=== PATIENT | male | born 1990 | race Caucasian/White ===

== ENCOUNTER 2019-06-19 14:29 | Outpatient (CLI) | payer BC, SELFPAY ==
--- NOTE | ~2019-06-19 | CT_ITS ---
EXAMINATION: CT chest abdomen pelvis w con DATE: 06/19/2019 15:52 INDICATION: Testicular cancer TECHNIQUE: Transaxial computed tomographic images of the chest, abdomen, and pelvis were obtained aft er the administration of 100 cc of Omnipaque 350 intravenous contrast. The dose-length product (DLP) was 710.39 mGy-cm. Automated exposure control and iterative reconstruction technique were employed. COMPARISON: None FINDINGS: CHEST CT: The lungs are free of acute opacities. There is no pleural effusion or pneumothorax. No pathologicall y enlarged thoracic lymph nodes are identified. The heart size is normal. ABDOMEN/PELVIS CT: The liver, spleen, pancreas, gallbladder, and adrenal glands are normal. The kidneys are unremarkable . No pathologically enlarged abdominal or pelvic lymph nodes are identified. There is no free intrape ritoneal gas or evidence of bowel obstruction. The appendix is normal. There is an L5 pars defect on the right. IMPRESSION: 1. No evidence of metastatic disease. Reviewed, dictated and finalized at location A.
== END 2019-06-19 14:30 | disposition home or self-care (01) ==
PROVIDERS: Visit Provider Urology
DX: R31.9 Hematuria, unspecified (principal); C62.90 Malignant neoplasm of unspecified testis, unspecified whether descended or undescended
CPT/HCPCS: 71260; 74177; Q9967

== ENCOUNTER 2019-07-14 15:07 | Outpatient (CLI) | payer BC, SELFPAY ==
[2019-07-14 15:46] LABS: Lactate Dehydrogenase 423 U/L (313-618)
[2019-07-17 11:31] LABS: HCG Tumor Marker <3 mIU/mL (<5)
[2019-07-20 16:26] LABS: Alpha Fetoprotein Tumor Marker 3.7 ng/mL (<6.1)
== END 2019-07-14 15:08 | disposition home or self-care (01) ==
PROVIDERS: Visit Provider Urology
DX: C62.90 Malignant neoplasm of unspecified testis, unspecified whether descended or undescended (principal)
CPT/HCPCS: 36415; 82105; 83615; 84702

== ENCOUNTER 2019-09-03 11:43 | Outpatient (CLI) | payer BC, SELFPAY ==
[2019-09-03 12:22] LABS: Basophils Absolute Auto 0.1 K/mm3 (0.0-0.1); Basophils Percent Auto 0.6 % (0.2-1.2); Eosinophils Absolute Auto 0.3 K/mm3 (0-0.3); Eosinophils Percent Auto 3.1 % (0-4.4); Hematocrit 46.1 % (42.0-52.0); Hemoglobin 15.6 g/dL (14.0-18.0); Immature Granulocyte Absolute 0.06 K/mm3 (0.00-0.031); Immature Granulocyte Percent A 0.7 % (0-0.5); Lymphocytes Absolute Auto 2.36 K/mm3 (0.9-3.2); Lymphocytes Percent Auto 28.6 % (18.3-44.2); Mean Corpuscular HGB Conc 33.8 g/dl (32-36); Mean Corpuscular Hemoglobin 31.6 pg (26-34); Mean Corpuscular Volume 93.3 fl (80-100); Mean Platelet Volume 11.6 fl (7.4-10.4); Monocytes Absolute Auto 0.7 K/mm3 (0.1-0.6); Monocytes Percent Auto 8.7 % (2.6-8.5); Neutrophils Absolute Auto 4.8 K/mm3 (1.3-6.7); Neutrophils Percent Auto 58.3 % (45.5-73.1); Platelet Count Result 233 k/mm3 (150-375); Red Blood Count 4.94 M/mm3 (4.6-6.20); Red Cell Distribution Width 12.4 % (11.5-14.5); White Blood Count 8.3 K/mm3 (4.5-10.0)
[2019-09-03 12:38] LABS: Alanine Aminotransferase 47 U/L (4-50); Albumin Level 4.8 g/dL (3.5-5.1); Alkaline Phosphatase 80 U/L (38-126); Aspartate Amino Transferase 41 U/L (17-59); Bilirubin,Total 1.2 mg/dL (0.2-1.3); Blood Urea Nitrogen 23 mg/dL (9-20); Calcium 9.6 mg/dL (8.4-10.2); Carbon Dioxide 30 mmol/L (22-30); Chloride 103 mmol/L (98-107); Estimated Glomerular Filt Rate > 60; Glucose 84 mg/dL (75-110); Lactate Dehydrogenase 485 U/L (313-618); Potassium 3.7 mmol/L (3.4-5.0); Sodium 141 mmol/L (137-145)
[2019-09-06 21:01] LABS: HCG Tumor Marker <3 mIU/mL (<5)
[2019-09-09 18:55] LABS: Alpha Fetoprotein Tumor Marker 3.5 ng/mL (<6.1)
== END 2019-09-03 11:44 | disposition home or self-care (01) ==
PROVIDERS: Visit Provider Internal Medicine
DX: C62.10 Malignant neoplasm of unspecified descended testis (principal)
CPT/HCPCS: 36415; 80053; 82105; 83615; 84702; 85025